=== PATIENT | female | born 1975 | race Caucasian/White ===

== ENCOUNTER → 2018-08-07 | Outpatient (CLI) | payer OTHER ==
--- NOTE | 2018-08-07 13:45 | WOMENS IMAGING REPORT ---
EXAM DESCRIPTION: BILAT DIAGNOSTIC MAMMO W/CAD; U/S BREAST UNILAT LIMITED COMPLETED DATE/TIME: 08/07/2018 12:27 pm; 08/07/2018 1:09 pm REASON FOR STUDY: N64.4 MASTODYNIA; LT BREAST PAIN N64.4 N64.4 MASTODYNIA COMPARISON: No prior mammograms for comparison TECHNIQUE: Standard craniocaudal and mediolateral oblique views of each breast recorded using digita l acquisition. Additional left breast 90 mediolateral view. Left breast ultrasound was also performed. LIMITATIONS: None. FINDINGS: RIGHT BREAST MASSES: No suspicious masses. CALCIFICATIONS: No new or suspicious calcifications. ARCHITECTURAL DISTORTION: None. DEVELOPING DENSITY: None. ASYMMETRY: None noted. OTHER: No other significant findings. LEFT BREAST MASSES: No suspicious masses. CALCIFICATIONS: No new or suspicious calcifications. ARCHITECTURAL DISTORTION: None. DEVELOPING DENSITY: None. ASYMMETRY: None noted. OTHER: No other significant finding. Read with the assistance of CAD: .[facility] - R2 Cenova Version 1.3 .[facility] Imaging - R2 Cenova Version 1.3 .[facility] - R2 Cenova Version 2.4 .[facility] - R2 Cenova Version 2.4 .[facility] - R2 Wic Site Coordinator Version 9.2 Left breast ultrasound: Left breast 12 o'clock position, a well-circumscribed cyst with good acoustic through transmission is present, 12 x 8 mm in diameter. No internal color flow. Minimal low level internal echoes from faye ris. Smaller anechoic cysts are present in the left breast upper outer quadrant, 6 mm at the 3 o'clock pos ition, 4 mm at the 3 o'clock position. IMPRESSION: No mammographic or sonographic evidence for malignancy bilaterally. In the area of left breast pain, there is a breast parenchymal cyst with low level internal echoes, this could be aspira karine for patient comfort. BREAST DENSITY: c. The breasts are heterogeneously dense, which may obscure small masses. BIRAD: 2 Benign findings. RECOMMENDATION: RECOMMENDED FOLLOW UP: Left breast cyst aspiration for patient comfort. Otherwise, please continue yearly bilateral screening mammography/ tomosynthesis in July 2019. Please consid er tomosynthesis given heterogeneously dense tissue. SPECIFIC INTERVENTION/IMAGING/CONSULTATION RECOMMENDED:No additional intervention/ imaging/consultati on needed at this time. COMMUNICATION:Patient notified by letter COMMENT: The patient has been notified of the results by letter per MQSA requirements. Additional no tification policies are in place for contacting patient with suspicious or incomplete findings. Quality ID #[id number]: The [employer] recommends an annual screening mammogram for women aged 40 years or over. This facility utilizes a reminder system to ensure that all patients receive reminder letters, and/or direct phone calls for appointments. This includes reminders for routine scr eening mammograms, diagnostic mammograms, or other Breast Imaging Interventions when appropriate. Th is patient will be placed in the appropriate reminder system. The [employer] (ACR) has developed recommendations for screening MRI of the breast s in certain patient populations, to be used in conjunction with mammography. Breast MRI surveillanc e may be appropriate for women with more than 20% lifetime risk of developing breast cancer as deter mined by genetic testing, significant family history of the disease, or history of mantle radiation f or Hodgkins Disease. ACR Practice Guidelines 2008. TECHNICAL DOCUMENTATION: FINDING NUMBER: (1) ASSESSMENT: (1) JOB ID: [id number] [employer]- All Rights Reserved Reading location - IP/workstation name: [facility]
--- NOTE | 2018-08-07 13:45 | WOMENS IMAGING REPORT ---
EXAM DESCRIPTION: BILAT DIAGNOSTIC MAMMO W/CAD; U/S BREAST UNILAT LIMITED COMPLETED DATE/TIME: 08/07/2018 12:27 pm; 08/07/2018 1:09 pm REASON FOR STUDY: N64.4 MASTODYNIA; LT BREAST PAIN N64.4 N64.4 MASTODYNIA COMPARISON: No prior mammograms for comparison TECHNIQUE: Standard craniocaudal and mediolateral oblique views of each breast recorded using digita l acquisition. Additional left breast 90 mediolateral view. Left breast ultrasound was also performed. LIMITATIONS: None. FINDINGS: RIGHT BREAST MASSES: No suspicious masses. CALCIFICATIONS: No new or suspicious calcifications. ARCHITECTURAL DISTORTION: None. DEVELOPING DENSITY: None. ASYMMETRY: None noted. OTHER: No other significant findings. LEFT BREAST MASSES: No suspicious masses. CALCIFICATIONS: No new or suspicious calcifications. ARCHITECTURAL DISTORTION: None. DEVELOPING DENSITY: None. ASYMMETRY: None noted. OTHER: No other significant finding. Read with the assistance of CAD: .[facility] - R2 Cenova Version 1.3 .[facility] Imaging - R2 Cenova Version 1.3 .[facility] Imaging - R2 Cenova Version 2.4 .[facility] [place] - R2 Cenova Version 2.4 .[facility] - R2 Packaging Clerk Version 9.2 Left breast ultrasound: Left breast 12 o'clock position, a well-circumscribed cyst with good acoustic through transmission is present, 12 x 8 mm in diameter. No internal color flow. Minimal low level internal echoes from faye ris. Smaller anechoic cysts are present in the left breast upper outer quadrant, 6 mm at the 3 o'clock pos ition, 4 mm at the 3 o'clock position. IMPRESSION: No mammographic or sonographic evidence for malignancy bilaterally. In the area of left breast pain, there is a breast parenchymal cyst with low level internal echoes, this could be aspira karine for patient comfort. BREAST DENSITY: c. The breasts are heterogeneously dense, which may obscure small masses. BIRAD: 2 Benign findings. RECOMMENDATION: RECOMMENDED FOLLOW UP: Left breast cyst aspiration for patient comfort. Otherwise, please continue yearly bilateral screening mammography/ tomosynthesis in July 2019. Please consid er tomosynthesis given heterogeneously dense tissue. SPECIFIC INTERVENTION/IMAGING/CONSULTATION RECOMMENDED:No additional intervention/ imaging/consultati on needed at this time. COMMUNICATION:Patient notified by letter COMMENT: The patient has been notified of the results by letter per MQSA requirements. Additional no tification policies are in place for contacting patient with suspicious or incomplete findings. Quality ID #[id number]: The [employer] recommends an annual screening mammogram for women aged 40 years or over. This facility utilizes a reminder system to ensure that all patients receive reminder letters, and/or direct phone calls for appointments. This includes reminders for routine scr eening mammograms, diagnostic mammograms, or other Breast Imaging Interventions when appropriate. Th is patient will be placed in the appropriate reminder system. The [employer] (ACR) has developed recommendations for screening MRI of the breast s in certain patient populations, to be used in conjunction with mammography. Breast MRI surveillanc e may be appropriate for women with more than 20% lifetime risk of developing breast cancer as deter mined by genetic testing, significant family history of the disease, or history of mantle radiation f or Hodgkins Disease. ACR Practice Guidelines 2008. TECHNICAL DOCUMENTATION: FINDING NUMBER: (1) ASSESSMENT: (1) JOB ID: [id number] [employer]- All Rights Reserved Reading location - IP/workstation name: [facility]
== END ==
LOC: WI 12:07
PROVIDERS: ATTEND Family Medicine
DX: N60.02 Solitary cyst of left breast (principal); N64.4 Mastodynia
CPT/HCPCS: 76642; 77066

== ENCOUNTER 2019-08-15 08:45 | Day surgery (SDC) | payer OTHER ==
[~2019-08-15 08:45] MED LIST: LIDOCAINE 2% INJ-PF (20 MG/ML) 10 ML AMPUL ONE; PROPOFOL INJ 200 MG/20 ML VIAL IV ONE
[2019-08-15 10:58] VITALS: BP 125/76
--- NOTE | 2019-08-15 11:41 | Operative Report ---
Operative Report DATE OF SURGERY: 08/15/19 Operative Report: The risks benefits and alternatives of the procedure explained to the patient in detail and informed consent is obtained.A GIF Olympus video scope was inserted into the patient's mouth and hypopharynx, the esophagus is identified intubated and insufflated, the scope was then advanced through the esophagus stomach and duodenum ,retroflexion maneuver is done, the esophagus stomach and first and second portions of the duodenum examined PREOPERATIVE DIAGNOSIS: Dyspepsia POSTOPERATIVE DIAGNOSIS: Gastritis status post biopsy without Helicobacter pylori OPERATION: EGD with biopsy SURGEON: MYNOR HOGUE ANESTHESIA: LMAC TISSUE REMOVED OR ALTERED: As noted above. COMPLICATIONS: None. ESTIMATED BLOOD LOSS: None. INTRAOPERATIVE FINDINGS: As noted above. PROCEDURE: Patient tolerated the procedure well. No immediate postprocedure complications are noted. Patient is discharged in good condition. Discharge date 08/15/2019. Discharge diet: Regular. Discharge activity: Regular. 2 to 3-week follow-up to discuss findings. Patient is instructed to call the office or proceed to the emergency room if there are any problems or questions. Wait on the pathology
== END 2019-08-15 10:58 | disposition home or self-care (01) ==
LOC: END 08:45
PROVIDERS: ATTEND Internal Medicine Gastroenterology
DX: K29.50 Unspecified chronic gastritis without bleeding (principal); K90.9 Intestinal malabsorption, unspecified; R06.02 Shortness of breath; R01.1 Cardiac murmur, unspecified; Z88.2 Allergy status to sulfonamides; E78.5 Hyperlipidemia, unspecified; J45.40 Moderate persistent asthma, uncomplicated; Z79.899 Other long term (current) drug therapy
CPT/HCPCS: 43239; 88305 ×2; 00731; J2704; J3490; 731